=== PATIENT | female | born 1990 | race Caucasian/White ===

== ENCOUNTER 2017-09-14 10:29 | Emergency (ER) | payer SELFPAY ==
--- NOTE | 2017-09-14 11:11 | EDM.PDOC ---
ED HPI GENERAL MEDICAL PROBLEM - General Chief Complaint: General Stated Complaint: TOOTH BROKE [id number] Time Seen by Provider: 09/14/17 11:01 Source of Information: Reports: Patient, RN, RN Notes Reviewed History Limitations: Reports: No Limitations - History of Present Illness INITIAL COMMENTS - FREE TEXT/NARRATIVE: Pt presents to the ER with c/o broken, painful tooth. She states she is unaware when the tooth broke, but became quite painful on . She states she has been using ibuprofen for the pain and is concerned it is getting infected, as she has a hard lump under the right jaw. She rates the pain 6/10 throbbing. Pt denies fever/chills, N/V/D, chest pain, sob, or any recent health problems. Onset: Gradual Onset Date: 09/12/17 Duration: Getting Worse Location: Reports: Face Quality: Reports: Throbbing Severity: Moderate Improves with: Reports: None Worsens with: Reports: None Associated Symptoms: Reports: No Other Symptoms Right Lower Oral/Mouth Pain Score (Numeric/FACES): 6 - Related Data Allergies Allergy/AdvReac Type Severity Reaction Status Date / Time amoxicillin [Amoxicillin] Allergy Nausea and Verified 09/14/17 10:41 Vomiting Penicillins Allergy Nausea and Verified 09/14/17 10:41 Vomiting Home Meds: Home Meds Acetaminophen [Tylenol] 650 mg PO Q4H PRN #30 tablet 03/27/14 [Rx] Norgestimate-Ethinyl Estradiol [Previfem Tablet] 1 each PO DAILY 06/28/14 [ History] Ibuprofen 400 mg PO Q8H PRN 09/14/17 [History] Past Medical History Cardiovascular History: Reports: None Respiratory History: Reports: None Genitourinary History: Reports: None 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 Musculoskeletal History: Reports: None Neurological History: Reports: None Psychiatric History: Reports: None Endocrine/Metabolic History: Reports: None Hematologic History: Reports: None Immunologic History: Reports: None Oncologic (Cancer) History: Reports: None Dermatologic History: Reports: None - Infectious Disease History Infectious Disease History: Reports: Chicken Pox - Past Surgical History Head Surgeries/Procedures: Reports: None HEENT Surgical History: Reports: Tonsillectomy GI Surgical History: Reports: Appendectomy, Cholecystectomy Social & Family History - Tobacco Use Smoking Status *Q: Current Every Day Smoker Years of Tobacco use: 10 Packs/Tins Daily: 0.5 Used Tobacco, but Quit: No Second Hand Smoke Exposure: No - Caffeine Use Caffeine Use: Reports: None - Alcohol Use Days Per Week of Alcohol Use: 0 - Recreational Drug Use Recreational Drug Use: No - Living Situation & Occupation Living situation: Reports: Single Occupation: Employed ED ROS GENERAL - Review of Systems Review Of Systems: ROS reveals no pertinent complaints other than HPI. 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 Erythema and swelling around the site, no exudate. ). No: Normal Inspection, Normal Teeth Head: Atraumatic, Normocephalic Neck: Normal Inspection, Supple, Non-Tender, Full Range of Motion Respiratory/Chest: No Respiratory Distress, Lungs Clear, Normal Breath Sounds, No Accessory Muscle Use, Chest Non-Tender Cardiovascular: Normal Peripheral Pulses, Regular Rate, Rhythm, No Edema, No Gallop, No JVD, No Murmur, No Rub Peripheral Pulses: 2+: Radial (L), Radial (R) GI/Abdominal: Normal Bowel Sounds, Soft, Non-Tender, No Organomegaly, No Distention, No Abnormal Bruit, No Mass (Female) Exam: Deferred Rectal (Female) Exam: Deferred Back Exam: Normal Inspection, Full Range of Motion Extremities: Normal Inspection, Normal Range of Motion, Non-Tender, Normal Capillary Refill, No Pedal Edema Neurological: Alert, Oriented, CN II-XII Intact, Normal Cognition, Normal Gait, Normal Reflexes, No Motor/Sensory Deficits Psychiatric: Normal Affect, Normal Mood Skin Exam: Warm, Dry, Intact, Normal Color, No Rash Lymphatic: Adenopathy (right submandibular) Course - Vital Signs Last Recorded V/S: Last Vital Signs Temp 97.7 F 09/14/17 10:36 Pulse 75 09/14/17 10:36 Resp 16 09/14/17 10:36 BP 116/83 09/14/17 10:36 Pulse Ox 100 09/14/17 10:36 - Orders/Labs/Meds Meds: Medications Discontinued Medications Generic Name Dose Route Start Last Admin Trade Name Raj PRN Reason Stop Dose Admin Ketorolac Tromethamine 60 mg 09/14/17 11:12 09/14/17 11:26 Toradol IM 09/14/17 11:13 60 mg ONETIME ONE Administration Departure - Departure Time of Disposition: 11:13 Disposition: Home, Self-Care 01 Condition: Fair Clinical Impression: Dental abscess, Dental caries - Discharge Information Instructions: Dental Abscess, Jorp-th-Pefu Forms: ED Department Discharge Additional Instructions: No solid foods, liquids only until seen by the dentist. See a dentist Saturday. RX: Clindamycin Continue ibuprofen and tylenol as directed for pain.
[2017-09-14] MEDS ORDERED: Ketorolac 30 MG/ML SDV IM ONE (11:12)
== END 2017-09-14 11:34 | disposition home or self-care (01) ==
LOC: DL.ED 10:29
DX: K04.7 Periapical abscess without sinus (principal); K02.9 Dental caries, unspecified; F17.210 Nicotine dependence, cigarettes, uncomplicated; Z88.0 Allergy status to penicillin; Z88.1 Allergy status to other antibiotic agents; Z79.899 Other long term (current) drug therapy
CPT/HCPCS: 96372; 99282; J1885; 99283